=== PATIENT | female | born 1995 | race Two or more races ===

== ENCOUNTER 2025-03-07 13:48 | Emergency (ER) | payer SELFPAY | END 2025-03-07 14:39 | disposition home or self-care (01) | LOC: JD.ED 13:48 | DX: S29.012A Strain of muscle and tendon of back wall of thorax, initial encounter (principal); M94.0 Chondrocostal junction syndrome [Tietze]; Z91.048 Other nonmedicinal substance allergy status; Z88.8 Allergy status to other drugs, medicaments and biological substances; X50.0XXA Overexertion from strenuous movement or load, initial encounter; Y93.89 Activity, other specified | CPT/HCPCS: 99283 ==